=== PATIENT | male | born 1980 | race Caucasian/White ===

== ENCOUNTER 2022-08-26 21:15 | Emergency (ER) | payer MEDICAID, SELFPAY ==
[2022-08-26 21:46] VITALS: BP 132/93; PULSE 90; RESP 22; O2SAT 100; BMI 29.9
[2022-08-26 22:36] VITALS: BP 152/95; PULSE 85; RESP 22; O2SAT 98
[2022-08-26] MEDS: ondansetron 2 mg/ML SDV 2 mL 4 MG IVP (22:39)
[2022-08-26] MEDS: HYDROmorphone 1 mg/mL INJ 1 mL IVP ×2 (22:41→23:24)
[2022-08-26 23:24] VITALS: RESP 20; O2SAT 96
[2022-08-27] MEDS: lactated ringers 1,000 ML 125 ML IV (00:08)
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
[2022-08-27 00:29] VITALS: RESP 18; O2SAT 99
[2022-08-27] MEDS: HYDROmorphone 1 mg/mL INJ 1 mL IVP (00:29)
[2022-08-27 00:35] VITALS: BP 139/90; PULSE 90; RESP 18; O2SAT 96
== END 2022-08-27 01:20 | disposition short-term general hospital (02) ==
PROVIDERS: Emergency Provider Emergency Medicine; PCP Family Medicine
DX: T24.211A Burn of second degree of right thigh, initial encounter (principal); X08.8XXA Exposure to other specified smoke, fire and flames, initial encounter
CPT/HCPCS: 96361; 96374; 96375; 96376; 99284; J1170; J2405; J7120